=== PATIENT | male | born 1965 ===

== ENCOUNTER 2020-07-21 18:04 | Emergency (ER) | payer OTHER ==
[2020-07-21 18:23] VITALS: BP 133/89; PULSE 75; TEMP 98.2; BMI 26.6
[2020-07-21] MEDS ORDERED: METOCLOPRAMIDE HCL 10 MG TABLET (FP) PO ONE (19:17)
[2020-07-21] MEDS ORDERED: ACETAMINOPHEN 325 MG TABLET (FP) PO ONE (19:17)
== END 2020-07-21 20:15 | disposition home or self-care (01) ==
LOC: JER 18:04
DX: S09.90XA Unspecified injury of head, initial encounter (principal)
CPT/HCPCS: 70450-TC; 99284-25